=== PATIENT | female | born 1955 | race Caucasian/White ===

== ENCOUNTER 2017-08-13 08:29 | Emergency (ER) | payer BC ==
[2017-08-13] MEDS ORDERED: Acetaminophen 325 MG Tab PO ONE (09:02)
--- NOTE | 2017-08-13 10:36 | EDM.PDOC ---
ED HPI GENERAL MEDICAL PROBLEM - General Chief Complaint: Lower Extremity Injury/Pain Stated Complaint: [facility] Time Seen by Provider: 08/13/17 08:53 Source of Information: Reports: Patient, RN Notes Reviewed - History of Present Illness INITIAL COMMENTS - FREE TEXT/NARRATIVE: 62-year-old female comes in by ambulance after suffering a fall on some icy rutted ground. She came down hard on her right knee with tremendous right knee discomfort. She also does have some mild pain and swelling of the proximal area of her left hand. She did come down on her left knee and leg as well but that does not hurt. No injury to head and neck or back. No chest pain or difficulty breathing. The pain of her right knee is much worse with any type of motion. Right Knee Pain Score (Numeric/FACES): 2 Left Wrist Pain Score (Numeric/FACES): 3 - Related Data Allergies Allergy/AdvReac Type Severity Reaction Status Date / Time No Known Allergies Allergy Verified 08/13/17 08:37 Home Meds: Home Meds . [No Known Home Meds] 08/13/17 [History] Past Medical History [employer] History: Reports: Psychiatric History: Reports: Anxiety - Past Surgical History HEENT Surgical History: Reports: Tonsillectomy Female Surgical History: Reports: Section Social & Family History - Tobacco Use Smoking Status *Q: Current Every Day Smoker Years of Tobacco use: 40 Packs/Tins Daily: 1 Second Hand Smoke Exposure: No - Caffeine Use Caffeine Use: Reports: Soda - Recreational Drug Use Recreational Drug Use: No Review of Systems - Review of Systems Review Of Systems: See Below Eyes: Reports: No Symptoms Ears: Reports: No Symptoms Nose: Reports: No Symptoms Mouth/Throat: Reports: No Symptoms Respiratory: Denies: Shortness of Breath, Pleuritic Chest Pain Cardiovascular: Denies: Chest Pain GI/Abdominal: Denies: Abdominal Pain, Nausea, Vomiting Musculoskeletal: Reports: Joint Pain (Right knee) Skin: Reports: Bruising (Right knee), Other (Abrasion left knee left distal thigh) Neurological: Denies: Dizziness, Headache, Numbness, Tingling ED EXAM, GENERAL - Physical Exam Exam: See Below General Appearance: Alert, Moderate Distress Eye Exam: Bilateral Eye: PERRL Head: Atraumatic Neck: Supple Respiratory/Chest: No Respiratory Distress, Lungs Clear, Normal Breath Sounds Cardiovascular: Regular Rate, Rhythm GI/Abdominal: Non-Tender Extremities: Joint Swelling (There is swelling and diffuse tenderness of the right knee, pain with any type of motion of the right knee joint), Other (There is superficial abrasion injury of the left knee and left distal thigh, no bony tenderness, no swelling or deformity) Skin Exam: Warm, Dry, Normal Color ED TRAUMA EXTREMITY PROCEDURES - Splinting Right Lower Extremity Splint Site: Long-leg splint right lower extremity Pre-Procedure NV Status: Normal Post-Procedure NV Status: Normal Splint Material: Fiberglass Splint Design: Volar Applied & Form Fitted By: Provider Provider Post-Splint Application NV Check: NV Status Normal Course - Vital Signs Last Recorded V/S: Last Vital Signs Temp 99.3 F 08/13/17 08:29 Pulse 88 08/13/17 11:25 Resp 16 08/13/17 11:25 BP 118/64 08/13/17 11:25 Pulse Ox 96 08/13/17 11:25 - Orders/Labs/Meds Orders: Active Orders 24 hr Category Date Time Status Hand Comp Min 3V Lt [CR] Stat Exams 08/13/17 09:02 Taken Knee Min 4V Rt [CR] Stat Exams 08/13/17 09:02 Taken Meds: Medications Discontinued Medications Generic Name Dose Route Start Last Admin Trade Name Cordell PRN Reason Stop Dose Admin Acetaminophen 975 mg 08/13/17 09:02 08/13/17 09:07 Tylenol PO 08/13/17 09:03 975 mg NOW ONE Administration - Re-Assessments/Exams Free Text/Narrative Re-Assessment/Exam: 08/13/17 12:30 X-rays of the right knee do show fracture of the distal femur right lateral margin with minimal displacement noted, Fiberglas splint has been placed. 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 We have given her a list of Orthopedists a level at time of discharge that she can call in the morning for follow-up appointment. She will use a friend's walker. Discharge instructions as documented. Departure - Departure Time of Disposition: 10:31 Disposition: Home, Self-Care 01 Condition: Fair Clinical Impression: Fracture, femur Qualifiers: Encounter type: initial encounter Femur location: distal Fracture type: closed Fracture morphology: unspecified fracture morphology - Discharge Information Instructions: Femoral Shaft Fracture Referrals: Georgia Vargas, PACKING AND WRAPPING SUPERVISOR [Primary Care Provider] - Forms: ED Department Discharge Additional Instructions: Fiberglas splint, ice packs and elevation as best he can to try help get swelling down, Tylenol for mild to moderate discomfort or hydrocodone if needed for more severe pain. You may cut the hydrocodone pain pills in half and see how that works for you to reduce side effects. See orthopedist in the next 2-3 days, next available appointment for follow-up evaluation and more definitive plan of treatment. Use walker to get around with no weightbearing right lower extremity as best you can. - My Orders Last 24 Hours: My Active Orders 08/13/17 09:02 Hand Comp Min 3V Lt [CR] Stat Knee Min 4V Rt [CR] Stat - Assessment/Plan Last 24 Hours: My Active Orders 08/13/17 09:02 Hand Comp Min 3V Lt [CR] Stat Knee Min 4V Rt [CR] Stat
--- NOTE | 2017-08-14 07:27 | CR ---
Right knee: Four views of the right knee were obtained. Fracture is identified in oblique orientation involving the distal femur. Fracture starts above the lateral epicondyle and then extends distally into the intercondylar notch. Mild displacement is seen. Joint effusion is noted. Mild spurring is noted off the patella. No additional abnormality is appreciated. Impression: 1. Distal femur fracture as noted above. 2. Joint effusion. Diagnostic code #3
--- NOTE | 2017-08-14 07:27 | CR ---
Left hand: Four views of the left hand were obtained. Comparison: No prior hand exam. Sclerotic area which is incidental is noted within the distal phalanx of the fourth digit. Sclerotic area also incidental is noted within the distal navicular bone. Several small cysts are seen within the lunate and navicular bone which are benign. Bony structures are somewhat osteopenic. Mild deformity is noted within the distal radius most likely due to old healed fracture. Nothing acute is appreciated. Impression: 1. Incidental findings. No acute bony abnormality is identified on left hand exam. Diagnostic code #2
== END 2017-08-13 12:12 | disposition home or self-care (01) ==
LOC: JD.ED 08:29 → SUPCPDRO 08:29 → JD.ED 12:12
DX: S72.421A Displaced fracture of lateral condyle of right femur, initial encounter for closed fracture (principal); S80.212A Abrasion, left knee, initial encounter; S70.312A Abrasion, left thigh, initial encounter; F17.210 Nicotine dependence, cigarettes, uncomplicated; W00.9XXA Unspecified fall due to ice and snow, initial encounter
CPT/HCPCS: 29505; 73130; 73564; 99284; A9270; 99283-25

== ENCOUNTER 2017-08-28 06:51 | Day surgery (SDC) | payer BC ==
--- NOTE | 2017-08-25 12:27 | PCM.PREANE ---
Preanesthetic Assessment - Anesthesia/Transfusion/Family Hx Anesthesia History: Prior Anesthesia Without Reaction Family History of Anesthesia Reaction: No Transfusion History: No Prior Transfusion(s) Intubation History: Unknown - Review of Systems General: No Symptoms Pulmonary: No Symptoms (Current smoker: 0.5-1 PPD times 40 years.), Cough Cardiovascular: No Symptoms Gastrointestinal: No Symptoms Neurological: No Symptoms Other: Reports: Anxiety - Physical Assessment NPO Status Date: 08/24/17 NPO Status Time: 22:00 Pulse: 93 O2 Sat by Pulse Oximetry: 92 Respiratory Rate: 16 Blood Pressure: 114/70 Temperature: 36.9 C Height: 1.57 m Weight: 68.039 kg ASA Class: 2 Mental Status: Alert & Oriented x3 Airway Class: Mallampati = 2 Dentition: Reports: Dentures (uupper and lower) Thyro-Mental Finger Breadths: 3 Mouth Opening Finger Breadths: 3 ROM/Head Extension: Full Lungs: Clear to Auscultation, Normal Respiratory Effort Cardiovascular: Regular Rate, Regular Rhythm, No Murmurs - Lab Values: MRSA screen: negative All labs reviewed and noted and within acceptable ranges to proceed with scheduled procedure. - Imaging/EKG Impressions: CXR: Emphysematous change noted, nothing acute seen EKG: SR rate= 84, poor R-wave progression - Allergies Allergies/Adverse Reactions: Allergies Allergy/AdvReac Type Severity Reaction Status Date / Time doxycycline Allergy Unknown Flushing, Verified 08/25/17 12:23 Edema levofloxacin [From Levaquin] Allergy Unknown Flushing, Verified 08/25/17 12:23 Edema lidocaine Allergy Flushing, Verified 08/25/17 12:23 Edema - Anesthesia Plan Pre-Op Medication Ordered: None - Acknowledgements Anesthesia Type Planned: General Anesthesia, Spinal (And a Right adductor canal block under US guidance for post operative pain control requested by Dr. 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: Psychiatric History: Reports: Anxiety - Past Surgical History HEENT Surgical History: Reports: Tonsillectomy Female Surgical History: Reports: Section - SUBSTANCE USE Smoking Status *Q: Current Every Day Smoker Tobacco Use Within Last Twelve Months: Cigarettes Second Hand Smoke Exposure: No Recreational Drug Use History: No - HOME MEDS Home Medications: Home Meds traMADol [Ultram] 50 mg PO Q6H PRN 08/25/17 [History] Acetaminophen/HYDROcodone [[place] 325-5 MG] 1 - 2 tab PO Q6H PRN #40 tablet 08/28 [Rx] Aspirin 325 mg PO BID #84 tab 08/28/17 [Rx] - CURRENT (IN HOUSE) MEDS Current Meds: Current Medications Lactated Ringer's (Ringers, Lactated) 1,000 mls @ 125 mls/hr IV ASDIRECTED [facility] Stop: 08/28/17 23:00 Lidocaine/Sodium Bicarbonate (Buffered Lidocaine 1% In Ns 8.4%) 0.25 ml IDERM ONETIME PRN PRN Reason: Prior to IV Start Stop: 08/28/17 18:00 Sodium Chloride (Saline Flush) 10 ml FLUSH ASDIRECTED PRN PRN Reason: Keep Vein Open Stop: 08/28/17 18:00 Discontinued Medications Lactated Ringer's (Ringers, Lactated) 1,000 mls @ 125 mls/hr IV ASDIRECTED [facility] Stop: 08/24/17 23:00 Lidocaine/Sodium Bicarbonate (Buffered Lidocaine 1% In Ns 8.4%) 0.25 ml IDERM ONETIME PRN PRN Reason: Prior to IV Start Stop: 08/24/17 18:00 Sodium Chloride (Saline Flush) 10 ml FLUSH ASDIRECTED PRN PRN Reason: Keep Vein Open Stop: 08/24/17 18:00
[~2017-08-28 06:51] MED LIST: EPINEPHrine 1 MG/ML SDV ONE; Lactated Ringers 1,000 ML IV SCH; Lidocaine 1%/Sod Bicarbonate in NS 8.4% 1 ML Syringe IDERM PRN; Ropivacaine 0.5% 5 MG/ML 30 ML SDV ONE; Sodium Chloride 0.9% 10 ML Syringe FLUSH PRN
[2017-08-28] MEDS ORDERED: Propofol 200 MG/20 ML SDV ONE ×3 (07:24→10:14)
[2017-08-28] MEDS ORDERED: Lactated Ringers 1,000 ML ONE ×2 (07:24→09:28)
[2017-08-28] MEDS ORDERED: Phenylephrine 1% 10 MG/ML SDV ONE (07:24)
[2017-08-28] MEDS ORDERED: fentaNYL 100 MCG/2 ML SDV ONE (07:24)
[2017-08-28] MEDS ORDERED: Lidocaine 1% 0 ML ONE (07:24)
[2017-08-28] MEDS ORDERED: Ondansetron 4 MG/2 ML SDV ONE (07:24)
[2017-08-28] MEDS ORDERED: ceFAZolin 1 GM Vial ONE (07:24)
[2017-08-28] MEDS ORDERED: Bupivacaine 0.75% 30 ML SDV ONE (07:24)
[2017-08-28] MEDS ORDERED: Ketamine 500 mg/10 ML MDV ONE (07:25)
[2017-08-28] MEDS ORDERED: Midazolam 1 MG/ML 2 ML SDV ONE (07:25)
[2017-08-28] MEDS ORDERED: Bupivacaine 0.25% 30 ML SDV ONE (07:35)
[2017-08-28] MEDS ORDERED: ePHEDrine 50 MG/ML SDV IVPUSH PRN (08:43)
[2017-08-28] MEDS ORDERED: Haloperidol Lactate 5 MG/ML SDV IVPUSH PRN (08:43)
[2017-08-28] MEDS ORDERED: diphenhydrAMINE 50 MG/ML SDV IVPUSH PRN (08:43)
[2017-08-28] MEDS ORDERED: fentaNYL 100 MCG/2 ML SDV IVPUSH PRN (08:43)
[2017-08-28] MEDS ORDERED: Ondansetron 4 MG/2 ML SDV IVPUSH PRN (08:43)
[2017-08-28] MEDS ORDERED: Midazolam 1 MG/ML 2 ML SDV IVPUSH PRN (08:43)
[2017-08-28] MEDS ORDERED: ePHEDrine 50 MG/ML SDV ONE (09:12)
--- NOTE | 2017-08-28 11:10 | PCM.POSTAN ---
POST ANESTHESIA ASSESSMENT - MENTAL STATUS Mental Status: Alert - VITAL SIGNS Pulse Rate: 101 SaO2: 92 (2Lpm nasal cannula) Resp Rate: 16 Blood Pressure: 106/58 Temperature: 36.5 C - RESPIRATORY Respiratory Status: Respiratory Rate WNL, Airway Patent, O2 Saturation Stable, Supplemental Oxygen - CARDIOVASCULAR CV Status: Pulse Rate WNL, Blood Pressure Stable - GASTROINTESTINAL GI Status: No Symptoms - POST OP HYDRATION Hydration Status: Adequate & Stable
--- NOTE | 2017-08-28 11:37 | PCM.SN ---
- Free Text/Narrative Note: Right selective femoral nerve block at the adductor canal for post-procedure pain control under US guidance requested by Dr. Woods. Time Out: 1116 Start: 1116 End: 1130 Chart reviewed. Consent signed. Questions answered. Appropriate monitors applied. Time out performed. Right mid-shaft femur identified with ultrasound, scanning medially of femur, the femoral artery in the adductor canal visualized , and the femoral nerve located laterally to the artery. The skin was prepped lateral to the ultrasound probe with chlorahexadine times two. The 21ga 4 insulated block needle was inserted under direct ultrasound guidance into the adductor canal. 20mL of 0.5% ropivacaine with 1:200,000 epinephrine was injected circumferentially around the nerve with intermittent negative aspiration noted. Patient tolerated the procedure well. Aseptic technique noted along with sterile gloves, mask, and sterile probe cover. See pictures on progress note and vital signs on nurses notes. Block completed in PACU. Yoly Posey CRNA
--- NOTE | 2017-08-28 11:55 | CR ---
Right femur: Multiple fluoroscopic spot views were obtained of the right knee utilizing C-arm device. Comparison: Previous right knee radiographs and CT knee of 08/21/17. Reduction of previous distal femoral fracture is seen with placement of plate and screws. Fluoroscopy time is given as 182.8 seconds. Impression: 1. Operative study as noted above. Diagnostic code #2
[2017-08-28] MEDS ORDERED: Acetaminophen/oxyCODONE 325-5 MG Tab PO PRN (14:16)
[2017-08-28] MEDS ORDERED: Ondansetron 4 MG Tab.DIS PO PRN (14:17)
[2017-08-28] MEDS ORDERED: Acetaminophen/HYDROcodone 325-10 MG Tab PO PRN (16:27)
[2017-08-28] MEDS ORDERED: Acetaminophen/HYDROcodone 325-5 MG Tab PO PRN (16:39)
--- NOTE | 2017-08-29 08:15 | PCM48HPAN ---
Post Anesthesia Note - EVALUATION WITHIN 48HRS OF ANESTHETIC Vital Signs in Normal Range: Yes Patient Participated in Evaluation: No (Patient discharged prior to note) Respiratory Function Stable: Yes Airway Patent: Yes Cardiovascular Function Stable: Yes Hydration Status Stable: Yes Pain Control Satisfactory: Yes Nausea and Vomiting Control Satisfactory: Yes Mental Status Recovered: Yes (chart reviewed. ) Pulse Rate: 103 Resp Rate: 12 Temperature: 97.5 F Blood Pressure: 114/60
--- NOTE | 2017-09-04 07:42 | PCM.OPNOTE ---
- General Post-Op/Procedure Note Date of Surgery/Procedure: 08/28/17 Operative Procedure(s): open reduction internal fixation of right lateral femoral condyle with arthroscopic assistance Pre Op Diagnosis: displaced right lateral femoral condyle fracture Post-Op Diagnosis: Same Anesthesia Technique: General ET Tube, Local Primary Surgeon: Uvaldo Woods Anesthesia Provider: Yoly Posey Batchmaker: Tamika Gonzalez EBL in mLs: 50 Complications: None Condition: Good
--- NOTE | 2017-09-04 08:11 | OR ---
DATE OF OPERATION: 08/28/2017 SURGEON: Uvaldo Woods MD OPERATION PERFORMED: Open reduction and internal fixation of right lateral femoral condyle with arthroscopic assistance. PREOPERATIVE DIAGNOSIS: Displaced right lateral femoral condyle fracture. POSTOPERATIVE DIAGNOSIS: Displaced right lateral femoral condyle fracture. ANESTHESIA: General endotracheal intubation with local. ANESTHESIA PROVIDER: Yoly Posey CRNA. BLOWER OPERATOR: Tamika Gonzalez PA-C. ESTIMATED BLOOD LOSS: 50 mL. COMPLICATIONS: None. CONDITION: Stable. DESCRIPTION OF PROCEDURE: The patient was identified in the preop holding area. Proper site was marked and identified by the surgeon. The patient was taken back to the operating theater, where after adequate anesthesia, the patient's right lower extremity had a nonsterile tourniquet applied, was then sterilely prepped and draped in the usual sterile fashion. OR-wide time-out was performed. The patient received 2 grams of IV Ancef. At this time, right lower extremity was exsanguinated. Tourniquet was insufflated to 250 mmHg. At this time, standard incision was made laterally over the distal femur and then curved anteriorly to follow the IT band. At this time, this was taken down to the IT band, and the IT band was incised along the incisional length. The fracture site was identified. A López and a curette were then used to free up and clean out the fracture site of all fracture hematoma. Irrigation was then irrigated through the fracture site as well. At this time, the distal femoral locking plate was placed and it was going to be placed in buttress fashion and had good positioning of it and it was secured to the bone using K-wire fixation. At this time, a proximal nonlocking screw was placed through the plate to get a buttress effect, but secondary to the patient's significant weak bone, the screw as it was tightening down, broke the near cortex before I could engage the far cortex. At this time, we did move up one higher screw hole and tried this again, and again her bone was severely osteoporotic and it broke the near cortex when trying to get the buttress effect of the plate. At this time, secondary to the patient's significantly osteoporotic bone, it was decided that we would do lag screws with direct reduction and a locking plate. At this time, the locking plate was taken out and an arthrotomy was performed. The fracture site was identified and a big periarticular reduction clamp was then used for anatomic reduction under C-arm fluoroscopy in both the AP and lateral views. Two 6.5 mm cannulated screws with washers were then placed from lateral to medial, making sure that they were not intra-articular, under direct visualization. At this time, it was found to be adequately reduced and both of the screws had adequate fixation. At this time, we placed the distal femoral locking plate back on and it was again secured to the bone. Starting proximally, I was able to secure the plate to the bone, although, at the band near the metaphyseal region, it was still off the bone, but there was good fixation of the bone both proximally and distally with the plate opposing the bone. At this time, the cortical and locking screws were alternated in the shaft and then locking screws were placed distally through the condyle. At this time, it was found to have adequate fixation through the plate and through the cannulated screws. Adequate saline was irrigated through the wound. A barbed suture was used for closure of the IT band. 2-0 Vicryl was used subcutaneously and skin angelo were used for the skin. A sterile soft dressing was applied. The patient was placed in a hinged knee brace and sent to the PACU in a stable condition. ESTEFANY /[id number]
== END 2017-08-28 19:18 | disposition home or self-care (01) ==
LOC: JD.MS 06:51 → JD.SDS 06:51
PROVIDERS: ATTEND Orthopaedic Surgery
DX: S72.421A Displaced fracture of lateral condyle of right femur, initial encounter for closed fracture (principal); F41.9 Anxiety disorder, unspecified; F17.210 Nicotine dependence, cigarettes, uncomplicated; Z88.1 Allergy status to other antibiotic agents; Z88.8 Allergy status to other drugs, medicaments and biological substances; Z79.82 Long term (current) use of aspirin; Z79.899 Other long term (current) drug therapy; X58.XXXA Exposure to other specified factors, initial encounter
CPT/HCPCS: 27514; 76000; A9270; C1713; J0171; J0690; J2250; J2370; J2405; J2795; J3010; J7120; J2704; J3490